=== PATIENT | male | born 1965 | race Caucasian/White ===

== ENCOUNTER 2021-10-17 07:31 | Day surgery (SDC) | payer OTHER ==
[~2021-10-17] VITALS: Ht 182.9 cm; Wt 84.4 kg
[~2021-10-17 07:31] MED LIST: ATOR1TAB21 PO; CARV25TA PO; CLONI1TA PO; LISI20TA35 PO; NIFE30TA50 PO; NS 1,000 ML IV ONE; POTA-149 PO
[2021-10-17] MEDS ORDERED: propofoL 200 MG/20 ML VIAL As Ordered ONE (09:36)
[2021-10-17 10:10] VITALS: BP 131/87
== END 2021-10-17 10:25 | disposition home or self-care (01) ==
LOC: M OPP 07:31
PROVIDERS: ATTEND Internal Medicine Gastroenterology
DX: Z12.11 Encounter for screening for malignant neoplasm of colon (principal); K63.5 Polyp of colon; K57.30 Diverticulosis of large intestine without perforation or abscess without bleeding; K64.8 Other hemorrhoids; I10 Essential (primary) hypertension; E78.00 Pure hypercholesterolemia, unspecified; Z79.02 Long term (current) use of antithrombotics/antiplatelets; Z79.899 Other long term (current) drug therapy